=== PATIENT | male | born 1955 | race Caucasian/White ===

== ENCOUNTER → 2017-04-09 | Day surgery (SDC) | payer OTHER ==
[~2017-04-09] VITALS: Ht 190.5 cm; Wt 88.5 kg
[~2017-04-09] MED LIST: ASPIRIN325 M2 PO; INVOKANA100 M1 PO; JANUVIA100 M1 PO; LIPITOR20 M2 PO; LISINOPRIL-HCT1 EACH PO; METFORMIN HCL500 M3 PO; PERCOCET 5-3251 EACH PO; PROBIOTIC1 EACH PO; TOPROL XL50 M1 PO
--- NOTE | 2017-04-09 14:27 | Operative Report ---
Operative/Inv Procedure Report Surgery Date: 04/09/17 Name of Procedure: Right axillary vein Port-A-Cath placement, ultrasound and fluoroscopic guidance Pre-Operative Diagnosis: Metastatic colon cancer Post-Operative Diagnosis: Same Estimated Blood Loss: scant Surgeon/Bin Operator: DAMI KUMAR,TABATHA Delatorre Anesthesia: local monitored anesthesi Implants: [employer] Operative/Procedure Note Note: After consent patient was brought to the operating room and laid supine. Sedation was obtained and his right chest and neck were prepped and draped. The subclavian vein was visualized using ultrasound. The vein was then accessed percutaneously with ultrasound guidance and the wire placed down the level of the right atrium with fluoroscopy. We then made an incision over the wire dissected a pocket inferiorly with blunt dissection. The port was placed into the pocket and measured the catheter under fluoroscopy. We then placed the dilator over the wire under fluoroscopic guidance. The catheter was then placed through the sheath which was then peeled away. Images showed the catheter was traversing over towards the left side. So I disconnected the catheter in place a wire through it and were able to place the catheter down into the right atrium under fluoroscopy. The catheter was then trimmed 3 cm because it appeared too long. Was reattached the port and final fluoroscopic images showed it in good position. The port was irrigated with concentrated heparin. The port was anchored to the deep subcutaneous tissues tissues with 0 Vicryl suture. The incision was then closed in layers of 3-0 & 4-0 Vicryl. CC: BRADEN KUMAR,MORENA
--- NOTE | 2017-04-09 14:53 | RADIOLOGY REPORT ---
EXAMINATION: XR PORTABLE CHEST CLINICAL INFORMATION: Port-A-Cath insertion. History of metastatic colon cancer. COMPARISON: PET/CT 04/01/2017. C-arm imaging chest 04/09/2017 TECHNIQUE: Portable frontal view of the chest was obtained. 2:27 PM FINDINGS: Right-sided Port-A-Cath. Central port catheter tip in superior vena cava with catheter tip at the cavoatrial junction. No pulmonary vascular congestion. Lungs are clear. No pleural effusion or pneumothorax. Heart size is normal. The cardiac and mediastinal contours are normal. Multilevel degenerative change of dorsal spine. IMPRESSION: Right-sided Port-A-Cath tip in superior vena cava. No acute abnormality the chest.
--- NOTE | 2017-04-10 13:27 | RADIOLOGY REPORT ---
EXAMINATION: INTRAOPERATIVE FLUOROSCOPIC GUIDANCE AND C-arm chest CLINICAL INFORMATION: Right-sided Port-A-Cath insertion in operating room. TECHNIQUE: Fluoroscopic time was utilized in the OR for Dr. Pizano. Fluoroscopic images were obtained in AP projections. FINDINGS: Images obtained during a right-sided port placement. Detail is limited. Please correlate with the procedural documentation. FLUOROSCOPY TIME: 4 minutes and 8 seconds of fluoroscopic time was utilized for the entirety of this examination. NUMBER OF IMAGES: 4 IMPRESSION: Intraoperative guidance as described above.
== END ==
LOC: STS 03:12
DX: C78.7 Secondary malignant neoplasm of liver and intrahepatic bile duct (principal); E11.9 Type 2 diabetes mellitus without complications; Z79.84 Long term (current) use of oral hypoglycemic drugs; E78.5 Hyperlipidemia, unspecified; I10 Essential (primary) hypertension; I25.10 Atherosclerotic heart disease of native coronary artery without angina pectoris
CPT/HCPCS: C1788; J0690; J1644; J2250